=== PATIENT | female | born 1960 | race Caucasian/White ===

== ENCOUNTER → 2024-07-17 | Outpatient (CLI) | payer MEDICARE ==
[~2024-07-17] MED LIST: GADOXETATE DISODIUM 2.5MMOL/10ML VIAL ONE
== END ==
LOC: M PLAIMG 12:09
PROVIDERS: ATTEND Internal Medicine Gastroenterology
DX: K74.60 Unspecified cirrhosis of liver (principal); R18.8 Other ascites; Z12.11 Encounter for screening for malignant neoplasm of colon; K76.89 Other specified diseases of liver; E27.9 Disorder of adrenal gland, unspecified
CPT/HCPCS: 74183; A9581